=== PATIENT | female | born 1960 | race Caucasian/White ===

== ENCOUNTER → 2020-06-05 | Outpatient (CLI) | payer BC ==
[2020-05-24 11:59] VITALS: BP 134/73
[~2020-06-05] MED LIST: AMOX1TAB58 PO; Nicotine 14MG TD
--- NOTE | 2020-06-05 17:34 | RAD ---
CLINICAL HISTORY: Mouth cancer INDICATION: Initial staging COMPARISON: CTA head and neck and CT chest 05/22/2020 TECHNIQUE: Location of scan: [facility] Radiopharmaceutical Dose: 13.4 mCi F-18 FDG intravenous Blood glucose at time of study: 107 FDG uptake time = 55 minutes. Images were obtained from the skull base to the proximal thighs A low dose, noncontrast CT study was performed for the purpose of attenuation correction and anatomic localization. FINDINGS: Head and Neck: The soft tissue mass involving the left hemimandible has intense FDG uptake with SUV max 12.5. There are no FDG avid lymph nodes in the head and neck. Several left level 1B and 2 cervical chain lymph nodes have low level FDG uptake with SUV max 2.18. Destructive soft tissue mass centered in the left hemimandible measures approximately 5.5 x 2.5 cm, unchanged. Left cervical chain lymph nodes are nonenlarged, measuring up to 4 mm axis. Chest: Background mediastinal uptake has SUV max 2.5. Left hilar lymph nodes have SUV max 2.59. Left perihilar and lower lobe consolidation with mild FDG uptake with SUV max 2.64. There is no FDG avid lymphadenopathy in the chest. The left lower lobe consolidation measures approximately 3.1 x 2.0 cm, similar to prior exam. Small cavitation within the consolidation is less conspicuous. There are calcifications in the mass and in the left hilum. No new abnormality in the lungs. Heart is normal in size. No lymphadenopathy in the chest. Abdomen and Pelvis: Liver uptake has SUV max 2.71. There is no FDG avid lymphadenopathy or abnormal uptake in the abdomen and pelvis. No lymphadenopathy in the abdomen and pelvis. There is scattered calcified aortic atherosclerosis. Calcified splenic granulomas are noted. No Skeletal: No abnormal uptake. IMPRESSION: Intense FDG uptake within the left hemimandibular mass, with SUV max 12.5. There is no definite FDG avid metastatic disease. There is low-level FDG uptake in a few small cervical chain lymph nodes, nonspecific. Low level FDG uptake in left hilar lymph nodes and left lower lobe consolidation, nonspecific but favored to be infectious/inflammatory.
== END ==
LOC: PETSC 08:45
PROVIDERS: ATTEND Internal Medicine Hematology & Oncology
DX: C03.9 Malignant neoplasm of gum, unspecified (principal); I25.10 Atherosclerotic heart disease of native coronary artery without angina pectoris; R22.1 Localized swelling, mass and lump, neck; D73.89 Other diseases of spleen
CPT/HCPCS: 78815; A9552

== ENCOUNTER → 2020-08-03 | Outpatient (CLI) | payer BC ==
[2020-05-24 11:59] VITALS: BP 134/73
[2020-08-03 13:50] LABS: BASO % 1 % (0-3); EOS # 0.2 x10^3/uL (0.0-0.7); EOS % 3 % (0-3); HEMATOCRIT 29.8 % (36.0-47.0); LYMPH # 1.6 x10^3/uL (1.0-4.8); LYMPH % 20 % (24-48); MEAN CORPUSCULAR HEMOGLOBIN 31 pg (25-35); MEAN CORPUSCULAR HGB CONC 34 g/dL (31-37); MEAN CORPUSCULAR VOLUME 91 fL (79-100); MONO # 1.1 x10^3/uL (0.0-1.1); MONO % 13 % (0-9); NEUT # 5.3 x10^3/uL (1.8-7.7); NEUT % 64 % (31-73); PLATELET COUNT 336 x10^3/uL (140-400); RED BLOOD COUNT 3.26 x10^6/uL (3.50-5.40); RED CELL DISTRIBUTION WIDTH 14.8 % (11.5-14.5); WHITE BLOOD COUNT 8.3 x10^3/uL (4.0-11.0)
[2020-08-03 14:17] LABS: CREATININE 0.7 mg/dL (0.6-1.0); GFR 84.8
[2020-08-03 14:24] LABS: ALBUMIN 2.5 g/dL (3.4-5.0); ALBUMIN/GLOBULIN RATIO 0.6 (1.0-1.7); TOTAL BILIRUBIN 0.3 mg/dL (0.2-1.0)
== END ==
LOC: ONCLAB 13:20
PROVIDERS: ATTEND Internal Medicine Hematology & Oncology
DX: C03.9 Malignant neoplasm of gum, unspecified (principal)
CPT/HCPCS: 36415; 80053; 85025

== ENCOUNTER 2020-12-20 20:00 | Emergency (ER) | payer BC ==
[~2020-12-20] VITALS: Ht 165.1 cm; Wt 44.5 kg
--- NOTE | 2020-12-20 21:27 | PHYS DOC ---
Past Medical History Past Medical History: Unknown Additional Past Medical Histor: BRAIN TUMOR Additional Past Surgical Histo: G-tube Smoking Status: Current Every Day Smoker Alcohol Use: Occasionally Drug Use: None General Adult EDM: Chief Complaint: GI PROBLEM HPI: HPI: Patient is a 60-year-old female presents with report of her G-tube falling out approximately 1 hour prior to arrival. Patient reports that tube has been present for the last 6 months. Denies any active bleeding from the site. Presents to the ER for replacement. Denies other complaint. Review of Systems: Review of Systems: Constitutional: Denies fever or chills Eyes: Denies redness or eye pain HENT: Denies nasal congestion or sore throat Respiratory: Denies cough or shortness of breath Cardiovascular: Denies chest pain or palpitations GI: Denies abdominal pain, nausea, or vomiting : Denies dysuria or hematuria Musculoskeletal: Denies back pain or joint pain Integument: Denies rash or skin lesions Neurologic: Denies headache, focal weakness or sensory changes Complete systems were reviewed and found to be within normal limits, except as documented in this note. Heart Score: C/O Chest Pain: N/A Allergies: Allergies: Allergies Coded Allergies Type Severity Reaction Last Updated Verified I S O L A T I O N *CONTACT* Allergy Unknown 09/23/20 Yes No Known Medication Allergies Allergy Unknown 09/21/20 Yes Physical Exam: PE: Constitutional: Well developed, no acute distress, non-toxic appearance HENT: Normocephalic, atraumatic Eyes: Conjunctiva normal, no discharge Neck: Normal range of motion, supple Lungs & Thorax: No respiratory distress, equal chest rise and fall Abdomen: Soft, no tenderness, g tube site with some external fat, scant gastric content discharge noted, no active bleeding Skin: Warm, dry, no erythema, no rash Extremities: No tenderness, ROM intact, no edema Neurologic: Alert and oriented X 3, no focal deficits noted Psychologic: Affect normal, judgment normal Current Patient Data: Vital Signs: Vital Signs Date Time Temp Pulse Resp B/P (MAP) Pulse Ox O2 Delivery O2 Flow Rate FiO2 12/20/20 20:05 98.0 97 18 144/65 (91) 100 Room Air 98.0 EKG: EKG: [] Radiology/Procedures: Radiology/Procedures: [] Course & Med Decision Making: Course & Med Decision Making Pertinent Imaging studies reviewed. (See chart for details) Patient presents for G-tube replacement. G-tube replaced without difficulty. Some scant bleeding and some pain upon placement but otherwise placement without difficulty. Pain addressed. X-ray with confirmation of good placement. Patient stable for discharge with outpatient follow-up with PCP. Discussed findings and plan with patient, who acknowledges understanding and agreement. Dragon Disclaimer: Dragon Disclaimer: This electronic medical record was generated, in whole or in part, using a voice recognition dictation system. Departure Departure Impression: Primary Impression: Encounter for feeding tube placement Disposition: HOME / SELF CARE / HOMELESS Condition: STABLE Referrals: BALTAZAR CARMICHAEL MD (PCP) Patient Instructions: Gastric Tube Replacement YUNIOR CHAU DO December 20, 2020 21:27
[2020-12-20] MEDS ORDERED: CONTRAST GIVEN. MC PRN (21:45)
[2020-12-20] MEDS ORDERED: IOHEXOL 240 MG/ML 50ML VIAL. PO ONE (22:00)
[2020-12-20] MEDS ORDERED: HYDROcodone/APAP 5/325MG 1 TAB TABLET PO ONE (22:00)
[2020-12-20 22:05] VITALS: BP 130/72
--- NOTE | 2020-12-20 22:41 | RAD ---
Exam: Abdomen one view INDICATION: Status post G-tube placement TECHNIQUE: Supine view the abdomen Comparisons: None FINDINGS: There is a percutaneous enteric tube with balloon in the left upper quadrant likely within stomach. O ral contrast is seen filling the stomach. No suspicious masses or calcifications. Visualized osseous structures are unremarkable. IMPRESSION: Lines and tubes described above. No extravasated contrast identified. Electronically signed by: Amalia Haider MD (12/20/2020 10:39 PM) [email or web address]
== END 2020-12-20 22:05 | disposition home or self-care (01) ==
LOC: ER 20:00
DX: Z43.1 Encounter for attention to gastrostomy (principal); F17.200 Nicotine dependence, unspecified, uncomplicated; Z91.041 Radiographic dye allergy status
CPT/HCPCS: 43762; 74018; 99284

== ENCOUNTER → 2021-01-29 | Outpatient (CLI) | payer BC ==
--- NOTE | 2021-01-29 15:38 | RAD ---
DUPLEX SONOGRAPHY OF THE PERIPHERAL ARTERIAL SYSTEM OF LEFT LOWER EXTREMITY Clinical indications: Nonhealing wound of the left lateral distal calf above the left ankle. Findings: Duplex sonography of the peripheral arterial system of the left lower extremity including g ray scale and color flow and spectral waveform analysis was performed. Biphasic waveforms are seen. N o occlusive disease is seen.There is a significant stenosis of the distal left SFA of at least 50 per cent. Calcified plaque is present here. The measurements were performed using the NASCET criteria. Peak systolic flow velocities are as follows: Left leg: common femoral artery- 166 cm/sec, profunda femoral artery -134 cm/sec, proximal superfici al femoral artery- 90cm/sec, mid superficial femoral artery- 115 cm/sec, distal superficial femoral a rtery- 476 cm/sec, popliteal artery -93 cm/sec, proximal posterior tibial artery -92 cm/sec, distal posterior tibial artery- 50 cm/sec, peroneal artery -87 cm/sec, anterior tibial artery -72 cm/sec, do rsalis pedis artery- 49 cm/sec. IMPRESSION: 50 percent stenosis of the distal left SFA. Electronically signed by: Arsen Clements MD (01/29/2021 3:35 PM) [id number]
== END ==
LOC: US 09:33
PROVIDERS: ATTEND Preventive Medicine Undersea and Hyperbaric Medicine
DX: S81.802A Unspecified open wound, left lower leg, initial encounter (principal); I70.212 Atherosclerosis of native arteries of extremities with intermittent claudication, left leg; X58.XXXA Exposure to other specified factors, initial encounter; Y93.89 Activity, other specified; Y92.89 Other specified places as the place of occurrence of the external cause; Y99.8 Other external cause status
CPT/HCPCS: 93926

== ENCOUNTER → 2021-02-19 | Outpatient (CLI) | payer BC ==
[~2021-02-19] MED LIST changes: +CONTRAST GIVEN. MC PRN; +IOHEXOL 350 MG/ML 100 ML VIAL. IV ONE
--- NOTE | 2021-02-19 15:48 | RAD ---
CTA abdomen, pelvis, and bilateral lower extremities 02/19/2021 Indication: Left leg pain. Status post osteotomy. COMPARISON STUDY: None TECHNIQUE: Multidetector CT imaging of the abdomen, pelvis, lower extremities was performed following the administration of contrast. 3-D reconstructions of abdominal, pelvic, lower extremity vasculatur e were created on an independent workstation. FINDINGS: There is no evidence of abdominal aortic aneurysm or dissection. Diffuse atherosclerotic va scular disease is seen. The celiac artery and SMA are patent. Bulky calcification limits evaluation o f the proximal renal arteries. Suspect mild stenosis bilaterally. Left common iliac artery is patent. Left internal iliac artery demonstrates high-grade proximal steno sis. Left external iliac artery is patent left common femoral artery is patent. Left profunda artery is patent. Left SFA is small in caliber. There is a short segment near occlusion of the distal SFA. Left popliteal artery is patent. Left anterior tibial and posterior tibial arteries are patent. Proxi mal dorsalis pedis lateral plantar arteries are patent. The peroneal artery is nonvisualized, which m ay be postoperative. The majority of the fibula has been resected. The right common iliac artery is mildly stenotic. Right internal iliac artery is mildly stenotic. Rig ht external iliac arteries patent. Right common femoral artery is patent.Profunda artery is patent. R ight SFA is patent. Right popliteal artery is patent. Right anterior tibial artery is patent. There i s some calcification tibial peroneal trunk possible mild stenosis. There is otherwise three-vessel ru noff on the right. Solid viscera of the abdomen demonstrate no acute abnormality. Gastrostomy tube noted. No evidence of bowel obstruction is seen. No free fluid or free air seen in the abdomen or pelvis. IMPRESSION: 1. High-grade stenosis of the distal right SFA. If patient has symptoms consistent with claudication, or poor wound healing, consider endovascular therapy. 2. Absence of the left peroneal artery possible secondary to surgical intervention.. Correlate with o perative notes. 3. Other chronic findings as above. CT DOSING PQRS STATEMENT: One or more of the following individualized dose reduction techniques were utilized for this examinat ion: 1. Automated exposure control 2. Adjustment of the mA and/or kV according to patient size 3. Use of iterative reconstruction technique Electronically signed by: Juan Frost MD (02/19/2021 3:46 PM) [id number]
== END ==
LOC: CT 10:47
PROVIDERS: ATTEND Preventive Medicine Undersea and Hyperbaric Medicine
DX: I70.201 Unspecified atherosclerosis of native arteries of extremities, right leg (principal); I73.89 Other specified peripheral vascular diseases; I70.8 Atherosclerosis of other arteries; L97.323 Non-pressure chronic ulcer of left ankle with necrosis of muscle
CPT/HCPCS: 75635; Q9967

== ENCOUNTER 2021-03-10 08:28 | Outpatient (CLI) | payer BC ==
[~2021-03-10] VITALS: Ht 165.1 cm; Wt 44.1 kg
[2021-03-10] VITALS (12 sets, daily range): BP systolic 100–147; BP diastolic 62–74
[~2021-03-10 08:28] MED LIST changes: -CONTRAST GIVEN. MC PRN; -IOHEXOL 350 MG/ML 100 ML VIAL. IV ONE
[2021-03-10] MEDS ORDERED: HYDR-3070 PO (08:44)
[2021-03-10] MEDS ORDERED: MULT-245 PO (08:44)
[2021-03-10 09:10] LABS: BASO % 1 % (0-3); EOS # 0.2 x10^3/uL (0.0-0.7); EOS % 4 % (0-3); HEMATOCRIT 37.5 % (36.0-47.0); HEMOGLOBIN 12.2 g/dL (12.0-15.5); LYMPH % 23 % (24-48); MEAN CORPUSCULAR HEMOGLOBIN 30 pg (25-35); MEAN CORPUSCULAR HGB CONC 33 g/dL (31-37); MEAN CORPUSCULAR VOLUME 92 fL (79-100); MONO # 0.4 x10^3/uL (0.0-1.1); MONO % 9 % (0-9); NEUT # 2.7 x10^3/uL (1.8-7.7); NEUT % 63 % (31-73); PLATELET COUNT 268 x10^3/uL (140-400); RED BLOOD COUNT 4.08 x10^6/uL (3.50-5.40); RED CELL DISTRIBUTION WIDTH 16.1 % (11.5-14.5); WHITE BLOOD COUNT 4.3 x10^3/uL (4.0-11.0)
[2021-03-10 09:12] LABS: CALCIUM 9.7 mg/dL (8.5-10.1); CREATININE 0.7 mg/dL (0.6-1.0); GFR 84.8; POTASSIUM 4.2 mmol/L (3.5-5.1)
[2021-03-10] MEDS ORDERED: LIDOCAINE WITH 8.4% SOD BICARB 3 ML DISP.SYRIN. ONE (09:28)
[2021-03-10] MEDS ORDERED: IODIXANOL 320 MG/ML 100 ML VIAL. ONE (09:28)
[2021-03-10] MEDS ORDERED: fentaNYL PF VIAL 100 MCG/2 ML VIAL ONE (09:29)
[2021-03-10] MEDS ORDERED: MIDAZOLAM HCL/PF 2 MG/2 ML VIAL. ONE (09:29)
[2021-03-10] MEDS ORDERED: HEPARIN for IV BOLUS 10,000 UNIT/10 ML VIAL. ONE (09:29)
[2021-03-10] MEDS ORDERED: MIDAZOLAM HCL/PF 2 MG/2 ML VIAL. IV ONE (10:00)
[2021-03-10] MEDS ORDERED: LIDOCAINE WITH 8.4% SOD BICARB 3 ML DISP.SYRIN. IJ ONE (10:00)
[2021-03-10] MEDS ORDERED: fentaNYL PF VIAL 100 MCG/2 ML VIAL IV ONE (10:00)
[2021-03-10] MEDS ORDERED: IODIXANOL 320 MG/ML 100 ML VIAL. IART ONE (10:00)
[2021-03-10] MEDS ORDERED: HEPARIN for IV BOLUS 10,000 UNIT/10 ML VIAL. IV ONE (10:15)
[2021-03-10] MEDS ORDERED: CLOPIDOGREL BISULFATE 75 MG TABLET PO ONE (10:45)
[2021-03-10] MEDS ORDERED: CLOPIDOGREL BISULFATE 75 MG TABLET ONE (10:58)
--- NOTE | 2021-03-10 11:10 | PDOC ---
Exam Special Warfare Operator Special Warfare Operator Santosh Pre-Procedure Diagnosis Pre-Procedure Diagnosis L SFA STENOSIS, POOR WOUND HEALING LLE Post-Procedure Diagnosis Post-Procedure Diagnosis SAME Procedure Performed Procedure Performed LSFA ANGIOPLASTY WITH DCB Type of Anesthesia Type of Anesthesia MOD SED Estimated Blood Loss EBL: 5cc Specimens Specimans None Drain/Tubes Drains/Tubes None Condition of Patient Condition of Patient Stable Disposition Disposition To [facility] WITH EXPECTED DC RANDA DIALLO MD Mar 10, 2021 11:09
[2021-03-10] MEDS ORDERED: CLOP75TA PO (11:14)
--- NOTE | 2021-03-10 11:39 | RAD ---
03/10/2021 Left lower extremity angiography. Angioplasty of a high-grade stenosis of the mid left SFA INDICATION: Left lower extremity calf wound, poorly healing. This is following harvesting of the luz ent's left fibula for head and neck surgical reconstruction. Patient also reports symptoms of claudic ation with walking. COMPARISON STUDY: CT angiography of the abdomen, pelvis, lower extremities February 19, 2021 Consent: The procedure was explained in its entirety to the patient or the patients designated repres entative by a member of the treatment team, including a discussion of the risks, benefits and commonl y accepted alternatives to the procedure, as well as the expected consequences of no therapy whatsoev er. Discussion of the risks included, but was not limited to, those that are most frequent and thos e that are rare but possibly severe or life-threatening, as well as the possibility of unforeseen com plications. The patient was prepped and draped using maximum sterile technique, including the use of: Current francoise deline approved cutaneous antisepsis, a large sterile sheet to establish a sterile field. Additionall y the bean picker machine operator wore a hat, mask, sterile gloves, a sterile gown during the procedure as well as pract iced acceptable hand hygiene prior to placing the line. The right groin was prepped and draped as described above. Ultrasound evaluation demonstrates the rig ht common femoral artery be patent. The artery was accessed under direct ultrasound guidance using mi cropuncture technique. Reference ultrasound images were saved to the medical record. A 5 Armenian vascular sheath was placed. A catheter was advanced into the left common femoral artery. L eft lower extremity angiography was performed. Left common femoral artery is patent. Left profunda is patent. The proximal left SFA is patent. The SFA small in caliber. There is a high grade stenosis in the mid to distal left SFA, with approximately 90% narrowing. The distal left SFA is patent. The pop liteal artery is patent. The anterior tibial artery and posterior tibial arteries are patent. The per huerta artery is nonvisualized, likely harvested to supply the bone and tissue graft. The stenotic lesion was treated with drug coated balloon angioplastied to 4 mm. This resulted in sign ificantly improved morphology and flow. Minimal residual narrowing is noted, though no significant di ssection is seen. Angiography of the access site was performed demonstrating a common femoral punctur e site over the mid femoral head. A minx device was deployed. Additional manual pressure was held, pe r routine. Hemostasis was achieved. Sterile dressings were applied. No immediate complications were i dentified. Total fluoroscopy time: 4.6 minutes Dose area product 11 Chawla centimeter squared Sedation: The procedure was performed under conscious sedation including continuous cardiopulmonary m onitoring via a dedicated sedation nurse. [id number] sedation time: 56 minutes IMPRESSION: High-grade stenosis of the distal mid to distal left SFA successfully treated with a drug coated Balloon angioplasty. The patient will be initiated on antiplatelet therapy x3 months. Electronically signed by: Juan Frost MD (03/10/2021 11:37 AM) [id number]
--- NOTE | 2021-03-10 13:54 | NUR ---
Discharge Note: CHAVEZ CEDEÑO Discharge instructions and discharge home medications reviewed with Patient and a copy given. All questions have been answered and understanding verbalized. The following instructions and handouts were given: groin site care,mynx closure,and adult moderate sedation Discontinued lines and drains: Peripheral IV intact. Patient discharged to Home or Self Care with[facility] Wheelchair
[2021-03-24] MEDS ORDERED: HYDR-2769 PO (12:01)
== END 2021-03-10 13:56 | disposition home or self-care (01) ==
LOC: INTRAD 08:28
PROVIDERS: ATTEND Emergency Medicine Undersea and Hyperbaric Medicine
DX: I73.89 Other specified peripheral vascular diseases (principal); L97.323 Non-pressure chronic ulcer of left ankle with necrosis of muscle; J44.9 Chronic obstructive pulmonary disease, unspecified; Z87.891 Personal history of nicotine dependence; Z79.899 Other long term (current) drug therapy; Z98.890 Other specified postprocedural states; Z72.89 Other problems related to lifestyle
CPT/HCPCS: 36415; 37224; 75710; 76937; 80048; 85025; 99152; 99153; C1760; C1769; C1892; C1894; C2623; J1644; J2250; J3010; J3490; Q9967; G0269

== ENCOUNTER 2021-05-15 17:41 | Emergency (ER) | payer BC ==
[~2021-05-15] VITALS: Ht 165.1 cm; Wt 43.6 kg
[~2021-05-15 17:41] MED LIST changes: +CLOP75TA PO; +HYDR-2769 PO; +HYDR-3070 PO; +MULT-245 PO
[2021-05-15 18:19] VITALS: BP 156/70
[2021-05-15] MEDS ORDERED: LIDOCAINE 1%/EPI 1:100,000 20 ML VIAL. INJ ONE (18:30)
--- NOTE | 2021-05-15 18:32 | PHYS DOC ---
Past Medical History Past Medical History: Unknown Additional Past Medical Histor: BRAIN TUMOR Additional Past Surgical Histo: G-tube Smoking Status: Light Tobacco Smoker Alcohol Use: Occasionally Drug Use: None General Adult EDM: Chief Complaint: bleeding from chronic wound on left leg HPI: HPI: Patient is a 60 year old female with a chronic nonhealing wound on left leg that she has been cared by [facility] weekly. Patient is currently on Plavix. She started noted some bleeding from the wound this morning. She has been using gauze to cover the wound but the bleeding is not stopped so she came here for evaluation. No injury. Review of Systems: Review of Systems: Constitutional: Denies fever or chills. [] Eyes: Denies change in visual acuity. [] HENT: Denies nasal congestion or sore throat. [] Respiratory: Denies cough or shortness of breath. [] Cardiovascular: Denies chest pain or edema. [] GI: Denies abdominal pain, nausea, vomiting, bloody stools or diarrhea. [] : Denies dysuria. [] Musculoskeletal: Denies back pain or joint pain. [] Integument: Denies rash. POSITIVE FOR BLEEDING FROM WOUND ON LEFT LEG. Neurologic: Denies headache, focal weakness or sensory changes. [] Endocrine: Denies polyuria or polydipsia. [] Lymphatic: Denies swollen glands. [] Psychiatric: Denies depression or anxiety. [] Heart Score: C/O Chest Pain: N/A Risk Factors: Risk Factors: DM, Current or recent (<one month) smoker, HTN, HLP, family history of CAD, obesity. Risk Scores: Score 0 - 3: 2.5% MACE over next 6 weeks - Discharge Home Score 4 - 6: 20.3% MACE over next 6 weeks - Admit for Clinical Observation Score 7 - 10: 72.7% MACE over next 6 weeks - Early Invasive Strategies Current Medications: Current Medications Medications (Trade) Dose Ordered Sig/Aníbal Start Time Stop Time Status Last Admin Dose Admin Lidocaine/ Epinephrine (LIDOCAINE 1%-EPI 1:100,000 Multi-Dose) 20 ml 1X ONCE 05/15/21 18:30 05/15/21 18:31 Allergies: Allergies: Allergies Coded Allergies Type Severity Reaction Last Updated Verified I S O L A T I O N *CONTACT* Allergy Unknown 09/23/20 Yes No Known Medication Allergies Allergy Unknown 09/21/20 Yes Physical Exam: PE: Constitutional: Well developed, well nourished, no acute distress, non-toxic appearance. [] Skin: Warm, dry, THERE IS A NONHEALING WOUND ON LEFT LOWER LATERAL LEG AREA, THERE IS SMALL OOZING AT THE SUPERIOR EDGE OF THE WOUND. NO EXUDATION. Back: No tenderness, no CVA tenderness. [] Extremities: No tenderness, no cyanosis, no clubbing, ROM intact, no edema. [] Neurologic: Alert and oriented X 3, normal motor function, normal sensory function, no focal deficits noted. [] Psychologic: Affect normal, judgement normal, mood normal. [] EKG: EKG: [] Radiology/Procedures: Radiology/Procedures: The wound was cleaned with saline and alcohol swab. 3 ML OF 1% LIDOCAINE WITH EPI WAS INJECTED INTO THE BLEEDING WOUND. THE BLEEDING WAS OBSERVED TO STOP. SURGICEL DRESSING WAS APPLIED TO THE WOUND. GAUZE WAS APPLIED ON TOP OF THE SURGICEL, KERLIX WAS WRAPPED AROUND THE WOUND, COBAN WAS LOOSELY WRAPPED AROUND THE WOUND. PATIENT WAS DISCHARGED HOME IN STABLE CONDITION. SHE WILL FOLLOW UP WITH WOUND CARE ON MONDAY. Course & Med Decision Making: Course & Med Decision Making Pertinent Labs and Imaging studies reviewed. (See chart for details) [] Dragon Disclaimer: Dragon Disclaimer: This electronic medical record was generated, in whole or in part, using a voice recognition dictation system. Departure Departure Impression: Primary Impression: Bleeding from wound Disposition: HOME / SELF CARE / HOMELESS Condition: IMPROVED Referrals: BALTAZAR CARMICHAEL MD (PCP) RODRIGO FRANCISCO DO Following up with [facility] ON MONDAY. Additional Instructions: You were seen today for bleeding from a chronic wound on your left leg. The bleeding was stopped now. Keep dressing in place until you are seen by your wound care doctor on Monday. Return if bleeding is getting worse. MANAN DIAZ DO May 15, 2021 18:32
[2021-05-15] MEDS ORDERED: SURGICEL HEMOSTAT 4X8 EACH. TP ONE (19:00)
== END 2021-05-15 19:05 | disposition home or self-care (01) ==
LOC: ER 17:41
DX: S81.802A Unspecified open wound, left lower leg, initial encounter (principal); Z72.0 Tobacco use; Z91.041 Radiographic dye allergy status; X58.XXXA Exposure to other specified factors, initial encounter; Y93.89 Activity, other specified; Y92.89 Other specified places as the place of occurrence of the external cause; Y99.8 Other external cause status
CPT/HCPCS: 99283; J3490

== ENCOUNTER → 2021-07-13 | Outpatient (CLI) | payer BC ==
--- NOTE | 2021-07-13 12:46 | RAD ---
Bilateral ankle-brachial indices 07/13/2021 INDICATION: Nonhealing wound, left lateral ankle COMPARISON STUDY: Abdominal aortogram March 10, 2021. Discussion: Right brachial pressure: 117 Left brachial pressure: 112 Right INSTRUMENT TESTER pressure: 108 Left INSTRUMENT TESTER pressure: 102 Right DTPA pressure: 107 Left DP pressure: 99 Right KALEB 0.92 Left KALEB 0.87 Arterial duplex ultrasound evaluation of the major arteries of the left lower extremity was performed including color Doppler imaging spectral analysis. Abnormal monophasic flow seen in the left common femoral artery. The left deep femoral artery is saul sly patent proximally. Mild elevation of velocity is seen within the distal left SFA suggesting mild stenosis. Left popliteal artery is grossly patent. Left peroneal, posterior tibial, anterior tibial a rtery appear to be grossly patent. Dorsalis pedis artery appears to be grossly patent. IMPRESSION: 1.Mildly reduced KALEB on the right 2. Duplex ultrasound demonstrates probable least mild stenosis in the distal left SFA 3. Monophasic waveforms in the left common femoral artery raise concern for hemodynamically significa nt aortoiliac stenosis. 4. Given prior intervention the distal SFA,, and poorly healing wound, the appearance is concerning f or recurrent lesion. Recommend repeat angiography and possible endovascular intervention. Electronically signed by: Juan Frost MD (07/13/2021 12:44 PM) [id number]
--- NOTE | 2021-07-13 12:46 | RAD ---
Bilateral ankle-brachial indices 07/13/2021 INDICATION: Nonhealing wound, left lateral ankle COMPARISON STUDY: Abdominal aortogram March 10, 2021. Discussion: Right brachial pressure: 117 Left brachial pressure: 112 Right QUALITY LAB TECHNICIAN pressure: 108 Left QUALITY LAB TECHNICIAN pressure: 102 Right DTPA pressure: 107 Left DP pressure: 99 Right KALEB 0.92 Left KALEB 0.87 Arterial duplex ultrasound evaluation of the major arteries of the left lower extremity was performed including color Doppler imaging spectral analysis. Abnormal monophasic flow seen in the left common femoral artery. The left deep femoral artery is saul sly patent proximally. Mild elevation of velocity is seen within the distal left SFA suggesting mild stenosis. Left popliteal artery is grossly patent. Left peroneal, posterior tibial, anterior tibial a rtery appear to be grossly patent. Dorsalis pedis artery appears to be grossly patent. IMPRESSION: 1.Mildly reduced KALEB on the right 2. Duplex ultrasound demonstrates probable least mild stenosis in the distal left SFA 3. Monophasic waveforms in the left common femoral artery raise concern for hemodynamically significa nt aortoiliac stenosis. 4. Given prior intervention the distal SFA,, and poorly healing wound, the appearance is concerning f or recurrent lesion. Recommend repeat angiography and possible endovascular intervention. Electronically signed by: Juan Frost MD (07/13/2021 12:44 PM) [id number]
== END ==
LOC: US 11:12
PROVIDERS: ATTEND Preventive Medicine Undersea and Hyperbaric Medicine
DX: L97.323 Non-pressure chronic ulcer of left ankle with necrosis of muscle (principal); I73.89 Other specified peripheral vascular diseases
CPT/HCPCS: 93922; 93926

== ENCOUNTER 2021-07-20 08:25 | Outpatient (CLI) | payer BC ==
[~2021-07-20] VITALS: Ht 165.1 cm; Wt 45.5 kg
[2021-07-20] VITALS (11 sets, daily range): BP systolic 88–119; BP diastolic 51–72
[2021-07-20 09:14] LABS: CALCIUM 9.2 mg/dL (8.5-10.1); CREATININE 0.7 mg/dL (0.6-1.0); GFR 84.5; POTASSIUM 3.7 mmol/L (3.5-5.1)
[2021-07-20 09:22] LABS: PROTHROMBIN TIME PATIENT 12.8 SEC (11.7-14.0)
[2021-07-20 09:25] LABS: BASO % 0 % (0-3); EOS # 0.1 x10^3/uL (0.0-0.7); EOS % 2 % (0-3); HEMATOCRIT 35.8 % (36.0-47.0); HEMOGLOBIN 11.4 g/dL (12.0-15.5); LYMPH # 1.2 x10^3/uL (1.0-4.8); LYMPH % 15 % (24-48); MEAN CORPUSCULAR HEMOGLOBIN 29 pg (25-35); MEAN CORPUSCULAR HGB CONC 32 g/dL (31-37); MEAN CORPUSCULAR VOLUME 90 fL (79-100); MONO # 0.6 x10^3/uL (0.0-1.1); MONO % 8 % (0-9); NEUT # 5.8 x10^3/uL (1.8-7.7); NEUT % 75 % (31-73); PLATELET COUNT 262 x10^3/uL (140-400); WHITE BLOOD COUNT 7.8 x10^3/uL (4.0-11.0)
[2021-07-20] MEDS ORDERED: HEPARIN for ARTERIAL LINE 1,500 ML ONE (09:45)
[2021-07-20] MEDS ORDERED: LIDOCAINE WITH 8.4% SOD BICARB 3 ML DISP.SYRIN. ONE (09:45)
[2021-07-20] MEDS ORDERED: IODIXANOL 320 MG/ML 100 ML VIAL. ONE (09:45)
[2021-07-20] MEDS ORDERED: IODIXANOL 320 MG/ML 50ML VIAL. ONE (09:45)
[2021-07-20] MEDS ORDERED: HEPARIN for IV BOLUS 10,000 UNIT/10 ML VIAL. ONE (10:06)
[2021-07-20] MEDS ORDERED: fentaNYL PF VIAL 100 MCG/2 ML VIAL ONE (10:06)
[2021-07-20] MEDS ORDERED: MIDAZOLAM HCL/PF 2 MG/2 ML VIAL. ONE (10:06)
[2021-07-20] MEDS ORDERED: MIDAZOLAM HCL/PF 2 MG/2 ML VIAL. IV ONE (11:00)
[2021-07-20] MEDS ORDERED: IODIXANOL 320 MG/ML 100 ML VIAL. IART ONE (11:00)
[2021-07-20] MEDS ORDERED: HEPARIN for IV BOLUS 10,000 UNIT/10 ML VIAL. IV ONE (11:00)
[2021-07-20] MEDS ORDERED: LIDOCAINE WITH 8.4% SOD BICARB 3 ML DISP.SYRIN. IJ ONE (11:00)
[2021-07-20] MEDS ORDERED: fentaNYL PF VIAL 100 MCG/2 ML VIAL IV ONE (11:00)
[2021-07-20] MEDS ORDERED: CONTRAST GIVEN. MC PRN (11:15)
[2021-07-20] MEDS ORDERED: CLOPIDOGREL BISULFATE 75 MG TABLET PO ONE (12:45)
[2021-07-20] MEDS ORDERED: CLOPIDOGREL BISULFATE 75 MG TABLET ONE (13:01)
--- NOTE | 2021-07-20 13:15 | NUR ---
PLAVIX 300MG PO GIVEN PER ORDER.
--- NOTE | 2021-07-20 13:25 | NUR ---
PRESCRIPTION FOR PLAVIX 75MG DAILY #[id number] [facility] ([phone]) PER ORDER.
[2021-07-20] MEDS ORDERED: CLOP75TA PO (13:28)
--- NOTE | 2021-07-20 14:43 | NUR ---
Discharge Note: CHAVEZ CEDEÑO Discharge instructions and discharge home medications reviewed with Patient and a copy given. All questions have been answered and understanding verbalized. The following instructions and handouts were given: MODERATE SEDATION AND GROIN SITE CARE. Discontinued LEFT PERIPHERAL IV, NO COMPLICATIONS. RIGHT GROIN SITE DRESSING REMAINED CLEAN, DRY AND INTACT. Patient discharged to HOME, ACCOMPANIED BY HER [id number].
--- NOTE | 2021-07-20 15:15 | RAD ---
07/20/2021 1. Aortogram pelvis 2. Left lower extremity angiography 3. Treatment of partially flow limiting dissection, left SFA with placement of a covered stent 4. Treatment of a left external iliac artery stenosis with placement of a self-expanding stent 5. Intravascular ultrasound evaluation of the left superficial femoral artery and left external iliac artery INDICATION: Persistent poorly healing wound, left lateral leg Consent: The procedure was explained in its entirety to the patient or the patients designated repres entative by a member of the treatment team, including a discussion of the risks, benefits and commonl y accepted alternatives to the procedure, as well as the expected consequences of no therapy whatsoev er. Discussion of the risks included, but was not limited to, those that are most frequent and thos e that are rare but possibly severe or life-threatening, as well as the possibility of unforeseen com plications. A timeout procedure was performed. The right groin was prepped and draped using sterile barrier techn ique. 1% lidocaine was administered for local anesthesia. Ultrasound evaluation demonstrates the righ t common femoral artery be patent. The artery was accessed using direct Sedation: The procedure wa pu ncture technique. Reference ultrasound images were saved medical record. A 5 Wolof sheath was placed . Catheter was advanced into the inferior abdominal aorta. Angiograms were obtained demonstrating mild stenosis of the right common iliac artery. There is moderate stenosis of the left external iliac frida ry. Moderate stenosis of the left internal iliac artery noted. Catheter was repositioned in the left common femoral artery and angiogram obtained from artery, proxi mal SFA, proximal profunda branches. Catheter was repositioned in the superficial femoral artery. Angiograms were obtained demonstrating a irregularity in the mid to distal SFA at the site of prior angioplasty. This appears to be moderatel y flow limiting. What appears to be a focal dissection or irregularity was also seen. The popliteal artery is patent. The anterior tibial artery is the dominant blood supply to the foot i s widely patent. Mild narrowing of the peroneal artery is seen. Anterior tibial artery branches are s een supplying the left lateral leg, with hyperemia at the patient's wound. Intravascular ultrasound was then performed to evaluate the SFA lesion which is found to significantl y narrow the vessel to approximately 25% diameter. Also, the area of irregularity appears to demonstr ate be loosely adherent intimal flap, or plaque which raises concern for possible future thrombosis o r embolization. Secondary to this appearance the SFA lesion was treated with placement of a 5 mm covered stent. This significantly improved morphology and flow. The left external iliac artery lesion was then evaluated with Sheyla also found to be significantly more stenotic than the angiogram suggested at approximately 80%. This was treated with placement of a self-expanding stent measuring 7 mm x 40 mm, postdilated to 7 mm. This significantly improved morpho logy and flow. Angiograms of the access site confirmed a common femoral puncture. A minx device was deployed as the sheath was removed. Hemostasis was achieved. Manual pressure was held in addition as a precaution. St erile dressings were applied. No immediate complications were identified. This procedure was under conscious sedation including continuous cardiopulmonary monitoring via a [facility] sedation nurse. [id number] sedation time: 87 minutes Fluoroscopy time: 9.3 minutes Dose area product:45 Chawla centimeter squared IMPRESSION: 1. 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 High-grade stenosis of the mid to distal left SFA, with dissection or intimal flap treated with pl acement of a covered stent 3. Patient will resume antiplatelet therapy, for minimum 6 months, possibly longer Electronically signed by: Juan Frost MD (07/20/2021 3:13 PM) [id number]
[2021-07-21] MEDS ORDERED: CLOPIDOGREL BISULFATE 75 MG TABLET PO SCH (08:00)
== END 2021-07-20 14:43 | disposition home or self-care (01) ==
LOC: INTRAD 08:25
PROVIDERS: ATTEND Surgery
DX: I73.9 Peripheral vascular disease, unspecified (principal); I70.8 Atherosclerosis of other arteries; J44.9 Chronic obstructive pulmonary disease, unspecified; M81.0 Age-related osteoporosis without current pathological fracture; Z87.891 Personal history of nicotine dependence; Z79.899 Other long term (current) drug therapy; Z79.02 Long term (current) use of antithrombotics/antiplatelets; Z98.890 Other specified postprocedural states; Z72.89 Other problems related to lifestyle
CPT/HCPCS: 36415; 37221; 37226; 37252; 75625; 75710; 76937; 80048; 85025; 85610; 99152; 99153; C1725; C1760; C1769; C1874; C1876; C1892; C1894; J1644; J2250; J3010; J3490; Q9967